=== PATIENT | female | born 1990 | race American Indian/Alaskan Native ===

== ENCOUNTER 2019-01-31 20:02 | Emergency (ER) | payer OTHER ==
--- NOTE | 2019-01-31 20:27 | Event Note ---
ED Screening Note ED Screening Note: took 12 tablets trazadone 50 mg about two hours ago denies trying to harm self no symptoms at all no N/V, dizziness, lightheaded, palpitations denies SI pmhx none no allergies to meds This initial assessment/diagnostic orders/clinical plan/treatment(s) is/are subject to change based on patients health status, clinical progression and re- assessment by fellow clinical providers in the ED. Further treatment and workup at subsequent clinical providers discretion. Patient/guardian urged not to elope from the ED as their condition may be serious if not clinically assessed and managed. Initial orders include: labs, EKG spoke with poison control who states to do CBC, CMP, salicylate, alcohol, tyleno l, EKG, observe for 4-6 hours, call back with results from labs, watch for hypotension which is fluid responsive, no other intervention at this time
--- NOTE | 2019-01-31 20:46 | Emergency Department Report ---
History of Present Illness - General Chief Complaint: Overdose Stated Complaint: POSSIBLE OD Time Seen by Provider: 01/31/19 20:26 Source: patient Mode of arrival: Ambulatory Limitations: No Limitations - History of Present Illness Initial Comments: Patient is a 28-year-old female that presents emergency room with complaints of taking too many trazodone pills. Patient states she took 1250 mg pills approximately 2 hours ago. Patient states she's been taking trazodone for a while. Patient denies suicidal ideations. Patient states 6 years ago she has suicidal ideations and was placed in a psychiatric facility. Patient denies pain. Patient denies any fatigue or feeling tired. Patient's girlfriend is at the bedside as well as the patient's father. The girlfriend states that the patient was trying to kill herself and that she actually took 30 tablets of 50 mg. Complaint: accidental overdose -: Sudden Intent: want to go to sleep Context: Accidental Overdose: medication error Treatments Prior to Arrival: none - Related Data Home Medications Medication Instructions Recorded Confirmed Last Taken Abilify 10 mg PO DAILY 02/01/19 02/01/19 Unknown traZODone [Desyrel] 200 mg PO DAILY 02/01/19 02/01/19 Unknown Allergies Allergy/AdvReac Type Severity Reaction Status Date / Time No Known Allergies Allergy Unverified 01/31/19 20:30 ED Review of Systems ROS: Stated complaint: POSSIBLE OD Other details as noted in HPI Constitutional: denies: chills, fever Eyes: denies: eye pain, eye discharge, vision change ENT: denies: ear pain, throat pain Respiratory: denies: cough, shortness of breath, wheezing Cardiovascular: denies: chest pain, palpitations Endocrine: no symptoms reported Gastrointestinal: denies: abdominal pain, nausea, diarrhea Genitourinary: denies: urgency, dysuria, discharge Musculoskeletal: denies: back pain, joint swelling, arthralgia Skin: denies: rash, lesions Neurological: denies: headache, weakness, paresthesias Psychiatric: denies: anxiety, depression Hematological/Lymphatic: denies: easy bleeding, easy bruising ED Past Medical Hx - Past Medical History Previous Medical History?: Yes Hx Psychiatric Treatment: Yes (Bipolar, PTSD) - Surgical History Past Surgical History?: No - Family History Family history: no significant - Social History Smoking Status: Current Every Day Smoker Substance Use Type: Alcohol - Medications Home Medications: Home Medications Medication Instructions Recorded Confirmed Last Taken Type Abilify 10 mg PO DAILY 02/01/19 02/01/19 Unknown History traZODone [Desyrel] 200 mg PO DAILY 02/01/19 02/01/19 Unknown History ED Physical Exam - General Limitations: No Limitations General appearance: alert, in no apparent distress - Head Head exam: Present: atraumatic, normocephalic - Eye Eye exam: Present: normal appearance - ENT ENT exam: Present: mucous membranes moist - Neck Neck exam: Present: normal inspection - Respiratory Respiratory exam: Present: normal lung sounds bilaterally. Absent: respiratory distress - Cardiovascular Cardiovascular Exam: Present: regular rate, normal rhythm. Absent: systolic murmur, diastolic murmur, rubs, gallop - GI/Abdominal GI/Abdominal exam: Present: soft, normal bowel sounds - Extremities Exam Extremities exam: Present: normal inspection - Back Exam Back exam: Present: normal inspection - Neurological Exam Neurological exam: Present: alert, oriented X3 - Psychiatric Psychiatric exam: Present: normal affect, normal mood - Skin Skin exam: Present: warm, dry, intact, normal color. Absent: rash ED Course Vital Signs 01/31/19 01/31/19 01/31/19 20:26 21:33 21:34 Temperature 98.8 F Pulse Rate 92 H 95 H Respiratory 18 14 16 Rate Blood Pressure 112/74 Blood Pressure 110/52 [Left] O2 Sat by Pulse 100 98 96 Oximetry 02/01/19 00:02 Temperature Pulse Rate 82 Respiratory 14 Rate Blood Pressure Blood Pressure 100/62 [Left] O2 Sat by Pulse 97 Oximetry - Reevaluation(s) Reevaluation #1: Initial evaluation done. Due to the conflicting stories between the girlfriend and the patient, the patient will be placed on a 1013. Poison control called by the nurse. The patient states she did not take these medications to herself however the patient's partner stating that she stated prior to taking medication she wanted to kill herself. 01/31/19 21:00 FAUSTINO BROWNLEE Female : 1990 [facility]# [id number] 01/31/19 20:51 - Nurse Note by KATIE SAMS Acct Num: [id number] : 1990 Patient Age: 28 At pt's bedside with for initial contact with pt. Pt states that she took 12 Trazadone 50 Mg. Pt's friend states that she was told by patient that she had taken 30and that she stated she wanted to hurt herself. Poison control called, spoke with Camilo and she stated to watch for [employer] depression, hypotension, to check asa level, salicyte lvl and do BMP. orders 1013 at this time Initialized on 01/31/19 20:51 - END OF NOTE Reevaluation #2: Skeletal results with patient. Patient is medically clear. Patient will remain in the ER. 02/01/19 02:21 ED Medical Decision Making - Lab Data Result diagrams: 01/31/19 21:19 01/31/19 21:19 - Medical Decision Making Patient is a 28-year-old female that presents to emergency room with complaints of overdose on trazodone. Patient initially stated that she did not have any suicidal intentions. Patient partner states she stated she wanted to resolve prior to taking the medication. Patient took 12 tablets of 50 mg trazodone. Poison control recommendations received. Patient is medically clear. Patient's labs unremarkable. Patient will remain in the ER on a 1013 until accepted into appropriate psychiatric facility. - Differential Diagnosis sucidal ideation. Overdose. Critical care attestation.: If time is entered above; I have spent that time in minutes in the direct care of this critically ill patient, excluding procedure time. ED Disposition Clinical Impression: Suicidal ideation Overdose Qualifiers: Encounter type: initial encounter Injury intent: intentional self-harm Qualified Code(s): T50.902A - Poisoning by unspecified drugs, medicaments and biological substances, intentional self-harm, initial encounter Disposition: DC/TX-65 PSY HOSP/PSY UNIT Is pt being admited?: No Does the pt Need Aspirin: No Condition: Stable Additional Instructions: Patient is medically cleared Referrals: CATERINA MEIER MD [Primary Care Provider] - 3-5 Days Time of Disposition: 23
[2019-01-31 21:39] LABS: Basophils # (Auto) 0.1 K/mm3 (0.0-0.1); Eosinophils # (Auto) 0.3 K/mm3 (0.0-0.4); Eosinophils % (Auto) 5.1 % (0.0-4.3); Hematocrit 32.7 % (30.3-42.9); Hemoglobin 10.5 gm/dl (10.1-14.3); Lymphocytes # (Auto) 2.2 K/mm3 (1.2-5.4); Lymphocytes % (Auto) 37.8 % (13.4-35.0); Mean Corpuscular HGB Conc 32 % (30-34); Mean Corpuscular Volume 85 fl (79-97); Monocytes # (Auto) 0.5 K/mm3 (0.0-0.8); Monocytes % (Auto) 8.4 % (0.0-7.3); Platelet Count 265 K/mm3 (140-440); Red Blood Count 3.87 M/mm3 (3.65-5.03); Red Cell Distribution Width 19.1 % (13.2-15.2)
[2019-01-31 21:50] LABS: Alanine Aminotransferase 7 units/L (7-56); Albumin 4.2 g/dL (3.9-5); BUN/Creatinine Ratio 7; Blood Urea Nitrogen 6 mg/dL (7-17); Hemolysis Index 5
[2019-02-01 01:40] LABS: Bacteria,Urine 1+ /HPF (Negative); Bilirubin,Urine NEG (Negative); Blood,Urine NEG (Negative); Color,Urine Yellow (Yellow); Protein,Urine <15 mg/dL mg/dL (Negative); Urobilinogen,Urine < 2.0 mg/dL (<2.0)
[2019-02-01 01:45] LABS: Amphetamine Screen,Urine PRESUMPTIVE NEGATIVE; Benzodiazepines Screen,Urine PRESUMPTIVE NEGATIVE; Cannabinoid Screen,Urine PRESUMPTIVE NEGATIVE; Cocaine Screen,Urine PRESUMPTIVE NEGATIVE; Methadone Screen,Urine PRESUMPTIVE NEGATIVE; Opiate Screen,Urine PRESUMPTIVE NEGATIVE
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
[2019-02-01 13:44] LABS: HCG Qualitative,Urine Negative (Negative)
[2019-02-01] MEDS ORDERED: ABILIFY PO SCH (14:00)
[2019-02-01 20:52] VITALS: BP 108/59
[2019-02-01] MEDS ORDERED: MELATONIN PO SCH (22:00)
== END 2019-02-01 21:37 ==
LOC: ED 20:02 → EEVIPCON 20:02 → ED 02-01 21:37
DX: T43.212A Poisoning by selective serotonin and norepinephrine reuptake inhibitors, intentional self-harm, initial encounter (principal); F17.200 Nicotine dependence, unspecified, uncomplicated; F31.9 Bipolar disorder, unspecified; F43.10 Post-traumatic stress disorder, unspecified; Y92.89 Other specified places as the place of occurrence of the external cause
CPT/HCPCS: 36415; 80053; 80307; 80320; 81001; 81025; 85025; 93005; 93010; G0480